=== PATIENT | female | born 1970 | race Caucasian/White ===

== ENCOUNTER 2017-01-07 16:50 | Emergency (ER) | payer OTHER ==
[~2017-01-07] VITALS: Ht 165.1 cm; Wt 68.5 kg
[2017-01-07 18:56] LABS: BASOPHIL % 0.9 % (0-2); PLATELET COUNT 268 x10^3mcL (130-400)
[2017-01-07 18:58] LABS: RED CELL DISTRIBUTION WIDTH 27.2 % (11.5-14.5)
[2017-01-07 19:51] VITALS: BP 120/83
== END 2017-01-07 19:51 | disposition home or self-care (01) ==
LOC: ED 16:50
PROVIDERS: Emergency Medicine
DX: N93.8 Other specified abnormal uterine and vaginal bleeding (principal); Z86.2 Personal history of diseases of the blood and blood-forming organs and certain disorders involving the immune mechanism
CPT/HCPCS: 36415